=== PATIENT | female | born 1995 | race Caucasian/White ===

== ENCOUNTER 2022-06-15 00:26 | Emergency (ER) | payer BC ==
[~2022-06-15] VITALS: Ht 167.6 cm; Wt 76.7 kg
[2022-06-15] MEDS ORDERED: KETOROLAC TROMETHAMINE 30 MG INJ IVP ONE (01:00)
--- NOTE | 2022-06-15 01:09 | NUR ---
[employer] at bedside.
[2022-06-15 01:20] LABS: HEMATOCRIT 36.3 % (31.2-41.9); MEAN CORPUSCULAR HEMOGLOBIN 30.2 uug (24.7-32.8); MEAN CORPUSCULAR VOLUME 88.6 fL (75.5-95.3); PLATELET COUNT (AUTO) 282 K/uL (179-408)
[2022-06-15 01:23] LABS: CREATININE 0.8 mg/dL (0.6-1.3); POTASSIUM 3.3 mmol/L (3.5-5.1)
[2022-06-15] MEDS ORDERED: KETOROLAC TROMETHAMINE 30 MG INJ ONE (01:32)
[2022-06-15] MEDS ORDERED: IV NORMAL SALINE 250 ML IV ONE (01:57)
[2022-06-15] MEDS ORDERED: SWABABLE VALVE TRANSFER SET EA MC ONE (01:57)
[2022-06-15] MEDS ORDERED: IOHEXOL 350 100 ML INFUS..BTL ONE (01:57)
[2022-06-15 02:02] LABS: *URINE HCG, QUAL NEGATIVE (NEGATIVE)
--- NOTE | 2022-06-15 02:57 | NUR ---
pt to radiology and back. Attended by radiolgy tech. safety maintained.
[2022-06-15] MEDS ORDERED: MORPHINE SULFATE 4 MG/1 ML DISP.SYRIN ONE (03:09)
[2022-06-15] MEDS ORDERED: MORPHINE SULFATE 4 MG/1 ML DISP.SYRIN IV ONE (03:15)
--- NOTE | 2022-06-15 03:30 | NUR ---
PT IA AWAKE AND IS IN NO APPARENT DSRESS. RR [id number].O2SAT 100 ON ROOM AIR. PAIN LEVEL 2/10. SIG OTHER IS AT THE BEDSIDE.
[2022-06-15] MEDS ORDERED: IBUP-1958 PO (04:09)
[2022-06-15 04:39] VITALS: BP 131/82
== END 2022-06-15 04:42 | disposition home or self-care (01) ==
LOC: ER 00:52
DX: S20.212A Contusion of left front wall of thorax, initial encounter (principal); S83.92XA Sprain of unspecified site of left knee, initial encounter; S63.91XA Sprain of unspecified part of right wrist and hand, initial encounter; V49.49XA Driver injured in collision with other motor vehicles in traffic accident, initial encounter; Y92.414 Local residential or business street as the place of occurrence of the external cause; R91.1 Solitary pulmonary nodule
CPT/HCPCS: 99285; 96374; 70498; 71045; 96375; 80048; 84703; 85025; 36415; 73000; 73130; 73564; J1885; Q9967; J2270; A4663; J7040